=== PATIENT | male | born 1980 | race Caucasian/White ===

== ENCOUNTER 2017-12-13 10:07 | Day surgery (SDC) | payer BC ==
[~2017-12-13 10:07] MED LIST: PROPOFOL 500 MG/50 ML EMU IV ONE
[2017-12-13] MEDS ORDERED: PROPOFOL 10 MG/ML 200 MG/20 ML EMU IV ONE (12:26)
[2017-12-13 13:19] VITALS: RESP 20; TEMP 97
[2017-12-13 13:22] VITALS: BP 145/87; PULSE 55; O2SAT 96
[2017-12-13 15:27] LABS: PATHOLOGY SPEC OR BIOPSY REFER MAYO/MKTO PATH
== END 2017-12-13 13:30 | disposition home or self-care (01) ==
LOC: SURG 10:07
PROVIDERS: ATTEND Internal Medicine Gastroenterology
DX: K52.9 Noninfective gastroenteritis and colitis, unspecified (principal); K64.8 Other hemorrhoids; K52.89 Other specified noninfective gastroenteritis and colitis
CPT/HCPCS: 99001; J2704